=== PATIENT | female | born 1985 | race Caucasian/White ===

== ENCOUNTER 2020-01-22 19:46 | Day surgery (SDC) | payer SELFPAY ==
[2020-01-22] MEDS ORDERED: hydrALAZINE 20 MG/ML VIAL SLOW IVP PRN (20:03)
[2020-01-22] MEDS ORDERED: Lactated Ringer's 1,000 ML IV SCH (20:15)
--- NOTE | 2020-01-22 20:46 | PDOC.FPROB ---
FMR OB H&P: HPI - History of Present Illness Chief Complaint: contractions Indentification: 34F @ 29.4wga History of Present Illness: 34F @ 29.4wga that presents with contractions. She reports that contractions started around 5-6pm this afternoon. They occurred every 15-20min. She reports that she had a very stressful event with her daughter earlier today and after that the contractions began. She reports that her contractions have started to space out, and she hasn't had one since she's been here. She denies vaginal bleeding, vaginal discharge, abdominal pain , headache, sob, cp. She endorses intermittent leg swelling. 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 States she was told she would need a repeat pap next year. - Surgical History Sx History: Cholecystectomy - Social History Social History: Denies smoking, alcohol use, drug use - Family History Family History: Denies FMR OB H&P: Medications - Current Home Medications: Medication Instructions Recorded Confirmed Type Loratadine [Claritin] 1 tab PO DAILY 01/22/20 01/22/20 History Omeprazole Magnesium [Prilosec] 1 tab PO DAILY 01/22/20 01/22/20 History Vit37/Iron/Folic Acid 1 tab PO DAILY 01/22/20 01/22/20 History [Prenata Chewable Tablet] Allergies/Adverse Reactions: Allergies Allergy/AdvReac Type Severity Reaction Status Date / Time Sulfa (Sulfonamide Allergy Hives Verified 01/22/20 20:10 Antibiotics) FMR OB H&P: ROS - Review of Systems General: denies: fever/chills, weight/appetite/sleep changes Eyes: denies: eye pain, vision changes ENT: reports: nasal congestion. denies: sore throat Cardiovascular: reports: edema (intermittent leg edema). denies: chest pain Respiratory: denies: cough, shortness of breath Gastrointestinal: reports: other (contractions). denies: abdominal pain, nausea , vomiting, diarrhea Genitourinary (Female): denies: vaginal discharge, vaginal bleeding Musculoskeletal: reports: pain (hip pain bilaterally) Neurologic: denies: syncope, seizures Integumentary: denies: rash, lesions Psychological: reports: anxiety FMR OB H&P: Vital Signs - Maternal Vital signs: BP 127/67 Pulse 88 Afebrile - Heart Tones Baseline: 150 (reactive strip) [place] contractions every: none FMR OB H&P: Physical Exam - Physical Exam General: NAD, awake, alert and oriented HEENT: normocephalic and atraumatic, EOMI, MMM Neck: supple, FROM Chest: non-tender to palpation, no lesions Heart: RRR, normal S1/S2 General: CTAB, no respiratory distress Abdomen: soft, gravid, non-tender, bowel sound present Musculoskeletal: pulses present, FROM in all four extremities Neurological: no clonus, no tremor Skin: no rash, good tugor Lymphatic: no unusual bruising or bleeding, no purpura Psychiatric: intact recent and remote memory, good judgement and insight FMR OB H&P: A/P - Problem List (1) Status: Acute (2) Uterine contractions during Status: Acute Code(s): O62.2 - OTHER UTERINE INERTIA Disposition: 34F @ 29.4wga presents with contractions # #Contractions -patient endorses ctx that began around 5pm, have since ceased -reports stressful event earlier today -denies vaginal bleeding or discharge -FHT: reactive strip, no ctx -no recent intercourse -cervical length US: 4.5cm. Placenta low-lying, close to the cervical os -symptoms c/w pratibha spencer contractions Dispo: discharge to home with return precautions discussed; follow up with PNC at scheduled appt next week; follow up with MFM at next appt 01/30. Will send US results to PNC and MFM for further monitoring of patient's placenta PCP: Susanne-PNC Discussion: Date/Time: 01/22/202044 This H&P was discussed with [Faye] and [Susanne] who agree with the above documentation and plan. Signature: Aylin Krueger MD PGY-1 Addendum - Attending - Attending Attestation Date/Time: 01/22/202228 I personally evaluated the patient and discussed the management with Dr. Krueger. I agree with the History, Examination, Assessment and Plan documented above with any addition or exceptions noted below.
--- NOTE | 2020-01-22 23:44 | ULT ---
ULTRASOUND PELVIC TRANSVAGINAL: Date: 01/22/2020 HISTORY: Pre-term contractions. COMPARISON: None. FINDINGS: Real-time Armstrong scale with color and spectral analysis of the pelvis was performed transabdominal and transvaginal approach. Cervix is closed, measuring 4.6 cm in length. The tip of the placenta is very close to the internal os. There is a single, live intrauterine with heart rate of 163 beats/minute. IMPRESSION: 1. Closed cervix measuring 4.6 cm in length. 2. Tip of cervix is close to the internal os. POS: HOME
== END 2020-01-22 21:42 | disposition home or self-care (01) ==
LOC: L&D/OP 19:46
PROVIDERS: ATTEND Family Medicine
DX: O47.03 False labor before 37 completed weeks of gestation, third trimester (principal); O09.523 Supervision of elderly multigravida, third trimester; Z3A.29 29 weeks gestation of pregnancy; Z79.899 Other long term (current) drug therapy; Z88.2 Allergy status to sulfonamides
CPT/HCPCS: 76856

== ENCOUNTER 2020-03-28 19:15 | Inpatient (IN) | payer OTHER ==
[~2020-03-28 19:15] MED LIST: Bupivacaine/Epinephrine 0.25% 30 ML VIAL ONE
[2020-03-28 22:36] VITALS: BMI 34.9
[2020-03-28] MEDS ORDERED: Ondansetron PF 4 MG/2 ML Vial IVP PRN (23:03)
[2020-03-28] MEDS ORDERED: Lidocaine 1% (PF) 30 ML VIAL SC PRN (23:03)
[2020-03-28] MEDS ORDERED: hydrALAZINE 20 MG/ML VIAL SLOW IVP PRN (23:03)
[2020-03-28] MEDS ORDERED: NS / Oxytocin 40 units/1000ml 1,000 ML IV PRN (23:03)
[2020-03-28] MEDS ORDERED: Acetaminophen 500 MG TAB PO PRN (23:03)
[2020-03-28] MEDS ORDERED: Promethazine HCl 25 MG/ML VIAL IM PRN (23:03)
--- NOTE | 2020-03-28 23:46 | PDOC.FPROB ---
FMR OB H&P: HPI - History of Present Illness Chief Complaint: mIOL for IUGR History of Present Illness: Patient is 34 yo @ 39.2 wks by LMP/13.4 wk sono presenting today for mIOL 2/2 IUGR. Last Hadlock was 4%. Patient is doing well today with no acute concerns or complaints. She denies VB, Vaginal LOF, [place], and SOB. She endorses good FM and clear/white nonodorous vaginal discharge. Along with IUGR, is complicated by cfDNA + for Ornelas syndrome. 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 - Surgical History Sx History: n/a - Social History Social History: Denies etoh, drug use, tobacco - Family History Family History: no history of defects/ complications FMR OB H&P: Medications - Current Home Medications: Medication Instructions Recorded Confirmed Type Loratadine [Claritin] 1 tab PO DAILY 01/22/20 01/22/20 History Omeprazole Magnesium [Prilosec] 1 tab PO DAILY 01/22/20 01/22/20 History Vit37/Iron/Folic Acid 1 tab PO DAILY 01/22/20 01/22/20 History [Prenata Chewable Tablet] Allergies/Adverse Reactions: Allergies Allergy/AdvReac Type Severity Reaction Status Date / Time Sulfa (Sulfonamide Allergy Hives Verified 01/22/20 20:10 Antibiotics) FMR OB H&P: ROS - Review of Systems General: denies: fever/chills, recent trauma Eyes: denies: eye pain, vision changes ENT: reports: rhinorrhea. denies: nasal congestion Cardiovascular: reports: edema. denies: chest pain, palpitation Respiratory: reports: congestion. denies: cough, shortness of breath Gastrointestinal: denies: abdominal pain, indigestion Genitourinary (Female): reports: vaginal pressure. denies: incontinence, dysuria, vaginal pain, vaginal bleeding, contractions Musculoskeletal: denies: pain, stiffness Neurologic: denies: numbness, syncope Integumentary: denies: itching, rash Hematologic/Lymphatic: denies: prolonged or excessive bleeding FMR OB H&P: Vital Signs - Maternal Vital signs: BP 129/67 HR 88 RR 18 T 98.6 - Heart Tones Baseline: 180 Variability: marked Acceleration: present Deceleration: absent Category: category 2 FMR OB H&P: Physical Exam - Physical Exam General: NAD, awake, alert and oriented HEENT: normocephalic and atraumatic, PERRLA Heart: RRR, normal S1/S2, no murmurs/rubs/gallops General: CTAB, no respiratory distress, good air movement Abdomen: soft, gravid, bowel sound present Neurological: sensation to pain,touch and proprioception grossly normal, no focal deficit Skin: no rash, good tugor Lymphatic: no unusual bruising or bleeding, no purpura Psychiatric: intact recent and remote memory, good judgement and insight - Pelvic Exam Vulva: normal hair distribution, appropriate aamir stage, no masses, no lesions , no discharge, no blood, normal rugae SVE: 0/40/-2 Membranes: intact Presentation: OA FMR OB H&P: A/P Disposition: Admitted for mIOL LOS>48 hrs Discussion: Date/Time: 03/28/202345 Patient is 34 yo @ 39.1 wks by LMP/13.4 wk sono presenting today for mIOL 2/2 IUGR. mIOL: - monitor closely during induction given severe IUGR Hadlock 4% at MFM - SVE: 0/40/-2 @0000 - Baby is vertex with OA/LTO - start cytotec 25 mg vaginally - recheck in 4 hrs cfDNA result - Have 2 green top tubes and collect cord blood using syringe to send for genetics testing This H&P was discussed with Dr. Ahuja and Dr. Benitez who agree with the above documentation and plan. Addendum - Attending - Attending Attestation Date/Time: 03/28/20 2269 I personally evaluated the patient and discussed the management with Dr. Mello I agree with the History, Examination, Assessment and Plan documented above with any addition or exceptions noted below. 34 yo female at 39.2 wks by LMP/13.4 wk sono CARIN: 04/02/20 PCP: Susanne Admit for mIOL 2/2 severe IUGR/SGA with reassuring umbilical artery Dopplers. also complicated by asthma, BMI 35, anxiety, cfDNA positive for monosomy X. +FM. Denies LOF, ctx, VB. FHT cat 1 tracing. Unfavorable cervix. - IOL: Continuous monitoring. Start with miso. R/B/A discussed. Questions answered. - sIUP: record reviewed. GBS negative. Epidural for pain control. Cephalic. - monosomy X: Reassuring level II sono. Low PPV on cfDNA. Karoytyping on cord blood. - asthma: Albuterol as needed. Avoid hemabate. - BMI 35 - Anxiety: Monitor. PRN meds. - Failed 1 hour gtt but declined further screening - IUGR 2/2 constitutionally small fetus and possible genetic syndrome. Normal Dopplers. Continue close monitoring. Billy notified. Will be present at delivery. Dedrick
[2020-03-28 23:50] LABS: Mean Corpuscular HGB CONC 34.1 g/dL (32.0-36.0); Mean Corpuscular Hemoglobin 31.9 pg (27.0-31.0); Mean Corpuscular Volume 93.5 fL (78.0-98.0); Mean Platelet Volume 8.5 fL (7.4-10.4); Platelet Count 201 thou/uL (130-400); RBC Distribution Width 12.4 % (11.5-14.5); Red Blood Cell (RBC) Count 3.75 mill/uL (4.20-5.40); White Blood Cell (WBC) Count 9.5 thou/uL (4.8-10.8)
[2020-03-29] MEDS ORDERED: NS / Oxytocin 40 units/1000ml 1,000 ML IV PRN ×2 (00:01→04:55)
[2020-03-29] MEDS ORDERED: Lidocaine 1% (PF) 30 ML VIAL SC PRN ×2 (00:01→04:55)
[2020-03-29] MEDS: Misoprostol 100 MCG TAB VAG SCH ×4 (00:13→20:46)
[2020-03-29 00:28] LABS: Syphilis Antibody Nonreactive (Nonreactive); Syphilis Antibody Index 0.03 S/CO (<1.00 Non-Reactive)
[2020-03-29 00:32] LABS: HBSAg Index 0.16 S/CO (0-0.99); Hep B Surf Ag Non-Reactive S/CO (NonReactive)
[2020-03-29] MEDS ORDERED: Butorphanol Tartrate 1 MG/ML VIAL ONE (02:45)
[2020-03-29] MEDS: Butorphanol Tartrate 1 MG/ML VIAL SLOW IVP PRN ×5 (02:59→17:18)
[2020-03-29] MEDS: Lactated Ringer's 1,000 ML IV SCH ×5 (04:12→20:47)
--- NOTE | 2020-03-29 04:55 | PDOC.BPN ---
<Kevin Mello - Last Filed: 03/29/20 05:34> - Brief Progress Note Patient is 34 yo @ 39.1 wks by LMP/13.4 wk sono presenting today for mIOL 2/2 IUGR. Patient doing well on exam. no new concerns or questions. wants an epidural after getting further along. mIOL: - monitor closely during induction given severe IUGR - Baby is vertex with OA/LTO - SVE: 0/40/-2 @0400 - Dose 2 cytotec 25 mg vaginally - recheck in 4 hrs cfDNA result - Have 2 green top tubes and collect cord blood using syringe to send for genetics testing <Melissa Benitez - Last Filed: 03/30/20 01:27> - Brief Progress Note 39.2 wks. Miso placed. Repeat q 4 hours. Dedrick
--- NOTE | 2020-03-29 07:04 | PDOC.LDPN ---
Labor & Delivery Progress Note - Subjective Subjective: comfortable - Objective Vital signs reviewed and normal: yes General: NAD Uterine fundus: non tender SVE: 0/40/-2 FHT: category 1 [place] contractions every: 2-3min -: Patient is 34 yo @ 39.1 wks by LMP/13.4 wk sono presenting today for mIOL 2/2 IUGR. mIOL: - mom resting, says she wants an epidural but wants to wait until further along - monitor closely during induction given severe IUGR Hadlock 4% at [facility] - SVE: 0/40/-2 @0400 - Baby is vertex with OA/LTO - 2 doses cytotec given - FHT Cat 1: 130/mod/no accel/no decel - recheck in 4 hrs cfDNA result - Have 2 green top tubes and collect cord blood using syringe to send for genetics testing
[2020-03-29] MEDS ORDERED: Fentanyl 4 mcg/Bup 0.1% Cadd 100 ML ONE (07:57)
[2020-03-29 12:03] LABS: SARS-CoV-2 MS2 Positive; SARS-CoV-2 N Gene Negative; SARS-CoV-2 S Gene Negative; SARS-CoV-2 by NAA Not Detected (NotDetected); SARS-CoV-2 orf1ab Negative
--- NOTE | 2020-03-29 13:34 | PDOC.LDPN ---
Labor & Delivery Progress Note - Subjective Subjective: painful contractions - Objective Vital signs reviewed and normal: yes General: breathing through contractions SVE: /-3 blt FHT: category 1 [place] contractions every: q2.5 min -: A/P: 1) IUP @39.1 weeks undergoing induction for IUGR - Cytotec x2 (last one @4AM); still poppy too often for next cytotec. Has made small amount of change. Will allow patient to ambulate in room and monitor for 20 minutes each hour. Consider balloon placement if cervix more dilated and less posterior. Category 1 FHTs. 2) Possible monosomy X - cfDNA = possible Ornelas's syndrome; Level II USG with no abnormalities noted. Will plan for noelle team to be present at delivery. Will also need to collect cord blood for genetic testing.
[2020-03-29] MEDS ORDERED: Promethazine HCl 25 MG/ML VIAL IM PRN (18:31)
[2020-03-29] MEDS ORDERED: Ondansetron PF 4 MG/2 ML Vial IVP PRN (18:31)
[2020-03-29] MEDS ORDERED: EPHEDRINE 25 MG/5 ML SYRINGE SLOW IVP PRN (18:31)
[2020-03-29] MEDS ORDERED: diphenhydrAMINE 50 MG/ML VIAL IVP PRN (18:31)
[2020-03-29] MEDS ORDERED: Lactated Ringer's 500 ML IV PRN (18:31)
[2020-03-29] MEDS ORDERED: Acetaminophen 325 MG TAB PO PRN (18:31)
[2020-03-29] MEDS ORDERED: Naloxone HCl 0.4 mg/ml Vial IVP PRN ×2 (18:31)
[2020-03-29] MEDS ORDERED: Communication Order-Pharmacy FS SCH (18:45)
[2020-03-29] MEDS ORDERED: Fentanyl 4 mcg/Bupivacaine 0.1% Cassette 100 ML EPIDURAL SCH (18:45)
--- NOTE | 2020-03-29 19:47 | PDOC.LDPN ---
Labor & Delivery Progress Note - Subjective Subjective: painful contractions - Objective Vital signs reviewed and normal: yes General: breathing through contractions Uterine fundus: non tender Dilation: 1.5 Effacement: 50% Station: -3 FHT: category 1 [place] contractions every: 5min, nonpainful Plan: continue plan of care, labor augmentation -: mIOL: - FHTs Cat 1. Just finished walking, contractions no longer painful & 5min apart. SVE 1.5/50/-[address] cytotec #3. cfDNA result - Have 2 green top tubes and collect cord blood using syringe to send for genetics testing
[2020-03-29] MEDS ORDERED: NS w/ Oxytocin 10 units 500 ML IV SCH (21:00)
--- NOTE | 2020-03-29 23:23 | PDOC.LDPN ---
Labor & Delivery Progress Note - Subjective Subjective: comfortable, no concerns - Objective General: breathing through contractions Uterine fundus: non tender SVE: /-1 FHT: category 1, variability present [place] contractions every: 3-5 mins Plan: continue plan of care, labor augmentation -: -: mIOL: - FHTs Cat 1. Contractions not painful & 3-5min apart. SVE 60/-[address]. [address] Cook balloon @ 0007 - Can start pit at 0100 pending strip - check cook balloon q4 hrs cfDNA result - Have 2 green top tubes and collect cord blood using syringe to send for genetics testing Addendum - Attending - Attending Attestation Date/Time: 03/30/20 0134 I personally evaluated the patient and discussed the management with Dr. Mello I agree with the History, Examination, Assessment and Plan documented above with any addition or exceptions noted below. Cooks balloon placed. Patient comfortable with epidural. Anxious and tired. Will allow rest. Prn meds available. Mild wheezing on exam. Albuterol provided. Avoid hemabate. Start pitocin per protocol in 2 hours. Cat 1 tracing. SVE 3/4/-3, mid-position, medium ABrayMD
[2020-03-30] MEDS ORDERED: Albuterol Sulfate 2.5 mg/3 ml Neb NEB PRN (00:01)
[2020-03-30] MEDS ORDERED: Albuterol Sulfate 2.5 mg/3 ml Neb NEB SCH (00:01)
[2020-03-30] MEDS ORDERED: Fentanyl 4 mcg/Bup 0.1% Cadd 100 ML ONE (01:10)
[2020-03-30] MEDS ORDERED: Misoprostol 200 MCG TAB ONE (03:01)
--- NOTE | 2020-03-30 05:18 | PDOC.OPDEL ---
OB Operative/Delivery Note Delivery Dr/Surgeon: Funmilayo Assist: Emmanuel Ahuja attending Pre-Delivery Diagnosis: active labor Procedure/Post Delivery Dx: spontaneous vaginal delivery Weeks gestation: 39 (39.3) Anesthesia: epidural - Additional Findings/Plan Placenta delivered: spontaneous Repaired Obstetrical Laceration: none Estimated blood loss: 100cc Compilations/Other Findings: This is 34yo F @ 39.3wks who delivered a viable F at 0331. Following an uneventful antepartum course, a vigorous F was delivered over an intact perineum in the occipitoposterior position. Anterior Shoulder and then remainder of the body delivered. No nuchal cord. The head was held down and mouth and nares were bulb suctioned. Cord clamped and cut, cord blood was collected for karyotype analysis and then for routine studies. Placenta delivered intact with a 3 vessel cord noted. Fundal massage was performed and the fundus was firm. The cervix and vagina were inspected and found to be free of lacerations. went to nursery in good condition for routine care. Apgars were 9/9 at 1 & 5 minutes, respectively. Patient tolerated delivery well and went to after routine recovery/care. Attending Note: Pre-op Dx: 1. SIUP 2. BMI 35 3. Autoimmune thyroiditis 4. Hx of SAB 5. Suspected Monosomy X 6. Severe IUGR Post-op Dx: - same 34 yo female at 39.1 wks admitted to L&D for scheduled IOL 2/2 severe IUGR with Hadlock of 4th percentile. Uncomplicated peripartum course. Delivered at 39.3 wks on 03/30/20 at 0331 in OP positioning. No lacerations. Routine recovery. ABrayMD Post delivery plan: routine recovery
[2020-03-30] MEDS ORDERED: Milk Of Magnesia 30 ML UDCUP PO PRN (06:13)
[2020-03-30] MEDS ORDERED: Benzocaine-Menthol 82.5 ML CAN TOP PRN (06:13)
[2020-03-30] MEDS ORDERED: Lanolin Ointment 7 GM TUBE TOP PRN (06:13)
[2020-03-30] MEDS ORDERED: Bisacodyl 10 MG SUPP PR PRN (06:13)
--- NOTE | 2020-03-30 06:20 | PDOC.PP ---
Post Progress Note Post Day #: 0 Subjective: @ 0331 on 03/30/20, no complications Vital Signs (12 hours) Resp 03/30/20 01:00 12 Weight Weight 104.326 kg Result Diagrams: 03/28/20 23:27 Additional Labs: Post Labs Blood Type O POSITIVE 03/29/20 01:02 Hep Bs Antigen Non-Reactive S/CO (NonReactive) 03/28/20 23:27 - Assessment/Plan 1. , 2.
[2020-03-30] MEDS ORDERED: Ibuprofen 800 MG TAB PO SCH ×2 (06:30→14:00)
[2020-03-30] MEDS: Ferrous Sulfate 325 MG TAB PO SCH ×2 (07:56→17:21)
[2020-03-30] MEDS ORDERED: Adacel (T-DAP) 0.5 ML SYRINGE IM ONE (09:00)
[2020-03-30] MEDS: Docusate Calcium (SURFAK) 240 MG CAP PO SCH ×2 (09:33→22:10)
[2020-03-30] MEDS: Prenatal Vitamin 1 TAB PO SCH (09:33)
[2020-03-30] MEDS: Misoprostol 100 MCG TAB VAG SCH ×3 (10:13→10:15)
[2020-03-30] MEDS ORDERED: hydrOXYzine 10 MG TAB PO PRN (11:33)
[2020-03-30] MEDS ORDERED: hydrOXYzine 10 MG TAB PO SCH (12:00)
[2020-03-31] MEDS: Ibuprofen 800 MG TAB PO SCH ×2 (00:57→10:02)
--- NOTE | 2020-03-31 08:01 | PDOC.PP ---
Post Progress Note Post Day #: 2 Subjective: NAEO. Pt reports doing well, no issues. Pain controlled. Ready for home. Vital Signs (12 hours) Temp Pulse Resp BP Pulse Ox 03/31/20 05:20 98.2 F 73 16 116/80 03/31/20 01:00 97.8 F 76 15 119/73 03/30/20 21:00 98.4 F 63 16 112/68 98 Weight Weight 104.326 kg - Physical Examination General: NAD Cardiovascular: RRR Respiratory: clear to auscultation bilaterally, non-labored breathing Abdominal: appropriately TTP Fundus firm & at: umbilicus Neurological: no gross focal deficits Psychiatric: A&Ox3, normal affect Result Diagrams: 03/28/20 23:27 Additional Labs: Post Labs Blood Type O POSITIVE 03/29/20 01:02 Hep Bs Antigen Non-Reactive S/CO (NonReactive) 03/28/20 23:27 - Assessment/Plan 34 yo s/p for mIOL for severe IUGR 1. s/p , PPD2 -Doing well, pain controlled -PP contraception:BTL, will need to refer - going well 2. BMI 35 -Lifestyle modification and counseling 3. Autoimmune thyroiditis 4. Hx of SAB 5. Suspected Monosomy X -Karyotype analysis collected at and pending 6. Severe IUGR D/c pending baby Addendum - Attending - Attending Attestation Date/Time: 03/31/202009 I personally evaluated the patient and discussed the management with Dr. Greene I agree with the History, Examination, Assessment and Plan documented above with any addition or exceptions noted below - Patient without complaints Ready to go home Afebrile VSS A/P: 1) PPD#2 s/p - doing well. Plan to d/c home today.
[2020-03-31] MEDS: Ferrous Sulfate 325 MG TAB PO SCH (08:08)
[2020-03-31] MEDS: Prenatal Vitamin 1 TAB PO SCH (08:18)
[2020-03-31] MEDS: Docusate Calcium (SURFAK) 240 MG CAP PO SCH (08:18)
[2020-03-31 08:24] VITALS: BP 104/72; TEMP 98.1
== END 2020-03-31 12:50 | disposition home or self-care (01) | DRG 807 ==
LOC: L&D 21:49 → 3SW 03-30 07:21
PROVIDERS: ADMIT Family Medicine; ATTEND Family Medicine
PROC: 10E0XZZ Delivery of Products of Conception, External Approach (ICD-10-PCS; principal; 2020-03-30)
PROC: 3E033VJ Introduction of Other Hormone into Peripheral Vein, Percutaneous Approach (ICD-10-PCS; 2020-03-30)
DX: O36.5930 Maternal care for other known or suspected poor fetal growth, third trimester, not applicable or unspecified (principal); Z37.0 Single live birth; Z3A.39 39 weeks gestation of pregnancy; O99.284 Endocrine, nutritional and metabolic diseases complicating childbirth; E06.3 Autoimmune thyroiditis; O76 Abnormality in fetal heart rate and rhythm complicating labor and delivery; O99.344 Other mental disorders complicating childbirth; F41.9 Anxiety disorder, unspecified; O99.52 Diseases of the respiratory system complicating childbirth; J45.909 Unspecified asthma, uncomplicated
CPT/HCPCS: 36415; 51702; 85027; 86780; 86850; 86900; 86901; 87340; 87635; 94640; J0595; J1200; J2550; J2590; J7611; U0003